=== PATIENT | male | born 1945 | race Caucasian/White ===

== ENCOUNTER 2020-09-01 14:53 | Emergency (ER) | payer MEDICARE, OTHER, SELFPAY ==
[2020-09-01 15:13] VITALS: BP 149/86; PULSE 70; RESP 18; TEMP 36.9; O2SAT 98; BMI 21.1
[2020-09-01 15:48] LABS: Add Manual Diff / Slide Review NO; Basophils Absolute Auto 100 /uL (0-100); Eosinophils Absolute Auto 200 /uL (0-450); Eosinophils Percent Auto 3.1 % (2-4); Hematocrit 44.9 % (41-53); Hemoglobin 14.6 g/dL (13.5-17.5); Lymphocytes Absolute Auto 2000 /uL (1100-4500); Lymphocytes Percent Auto 30.7 % (25-40); Mean Corpuscular HGB Conc 32.4 % (30-36); Mean Corpuscular Hemoglobin 32.1 PG (26-34); Mean Corpuscular Volume 98.9 fL (80-100); Monocytes Absolute Auto 500 /uL (0-900); Monocytes Percent Auto 7.5 % (3-14); Neutrophils Absolute Auto 3700 /uL (1500-7000); Neutrophils Percent Auto 57.7 % (50-75); Platelet Count 183 X10^3/uL (150-400); Red Blood Cell Count 4.54 X10^6/uL (4.5-5.9); Red Cell Distribution Width 12.9 % (11.6-14.8); White Blood Cell Count 6.4 X10^3/uL (4.5-11.0)
--- NOTE | 2020-09-01 15:52 | PC.NURSE ---
Pt reports having difficult time with isolation from COVID. Recent breakup with long distance relationship. Saw primary MD last month for insomnia and trouble falling asleep, now out of prescribed medication. Feels depressed about not being able to sleep and lack of socialization. Does not have any thoughts or intentions of suicide.
[2020-09-01 15:58] LABS: Acetaminophen < 10 ug/mL (10-30); Alanine Aminotransferase 28 IU/L (<50); Albumin 4.3 g/dL (3.5-5.0); Albumin Globulin Ratio 1.5 (1.0-2.8); Alkaline Phosphatase 87 U/L (38-126); Aspartate Aminotransferase 29 IU/L (17-59); BUN Creatinine Ratio 10.8 (6-22); Bilirubin Total 0.8 mg/dL (0.2-1.3); Blood Urea Nitrogen 9 mg/dL (9-20); Calcium 9.7 mg/dL (8.4-10.2); Carbon Dioxide 29 mmol/L (22-32); Chloride 105 mmol/L (98-107); Estimated Glomerular Filt Rate > 60.0 mL/min (>60); Ethanol (ETOH) < 10 mg/dL; Globulin 2.8 g/dL (1.7-4.1); Glucose 107 mg/dL (80-110); HEMOLYSIS 25 (0-50); Salicylate < 1.0 mg/dL (<20); Sodium 140 mmol/L (137-145); Total Protein 7.1 g/dL (6.3-8.2)
--- NOTE | 2020-09-01 16:19 | ED_ITS ---
HPI - Psych General Chief Complaint: Psychiatric Symptoms Stated Complaint: major stress, says puts him in shock Time Seen by Provider: 09/01/20 16:07 Source: patient Mode of arrival: Ambulatory Limitations: no limitations History of Present Illness HPI Narrative: Patient is a 74-year-old male who presents with insomnia. He states that he has had and lot of stress happening over the past 7-8 months. Over the past couple months he has had increased difficulty sleeping. It sounds as though he has a good sleep routine he stops screens and television an hour before bed he reads and then does a crossword puzzle and even tries to read books and determine just to take his concentration and focus off getting to s leep. He has tried multiple medications including melatonin and Benadryl, his PCP put him on alprazolam 0.25 mg which he said worked like a Charm initially but then stopped working and he started spreading them out a. However he has not slept in the last several nights and this causes him great stress. He denies any suicidal ideations or homicidal ideations. He says he really just feels like he needs to sleep in if he does not body might go into shock. Relieving factors: none Exacerbating factors: none Related Data Home Medications Medication Instructions Recorded Confirmed CYANOCOBALAMIN (VITAMIN B-12) 1,000 mcg PO QDAY #0 06/11/12 magnesium 200 mg PO Q DAY #0 08/25/16 omeprazole 20 mg PO QDAY #0 12/29/16 Previous Rx's Medication Instructions Recorded cephalexin [Keflex] 0 PO BID #40 cap 12/29/16 alprazolam 0.5 mg PO BEDTIME PRN #2 tab 09/01/20 Allergies Allergy/AdvReac Type Severity Reaction Status Date / Time macadamia nut oil Allergy Severe Anaphylaxis Unverified 08/26/17 12:23 [MACADAMIA NUT OIL] egg [EGG] Allergy Unknown Unverified 08/26/17 12:23 sesame seed [SESAME SEED] Allergy Unknown Unverified 08/26/17 12:23 soy [SOY] Allergy Unknown Unverified 08/26/17 12:23 sunflower seed Allergy Unknown Unverified 08/26/17 12:23 [SUNFLOWER SEED] dairy Allergy Unknown Uncoded 08/26/17 12:23 FLU VACCINE AdvReac Unknown NAUSEA Uncoded 08/26/17 12:23 Review of Systems Constitutional Constitutional: Denies chills, Reports daytime sleepiness, Reports difficulty sleeping, Denies lethargy, Denies night sweats and Denies poor appetite Cardiovascular Cardiovascular: Denies chest pain, Denies irregular heart rhythm, Denies lightheadedness, Denies palpitations, Denies dyspnea, Denies dyspnea on exertion and Denies orthopnea Respiratory Respiratory: Denies cough, Denies dyspnea, Denies dyspnea on exertion and Denies wheezing Gastrointestinal Gastrointestinal: Denies abdominal pain, Denies change in bowel habits, Denies diarrhea, Denies nausea and Denies vomiting Genitourinary Genitourinary: Denies urinary hesitancy and Denies urinary incontinence Genitourinary: Denies urinary incontinence and Denies urinary hesitancy Musculoskeletal Musculoskeletal: Denies back pain and Denies myalgias Integumentary/Breasts Skin/Breast: Denies pruritus, Denies erythema, Denies rash and Denies wounds Endocrine Endocrine: Denies palpitations Allergic/Immunologic Allergic/Immunologic: Denies wheezing Patient History Surgical History History of cataract removal with insertion of prosthetic lens Status post hernia repair Family History Father Essential hypertension High cholesterol Social History Smoking Status: Never smoker Smoking Status: Never smoker Substance Use Type: does not use Exam Initial Vital Signs Initial Vital Signs: Vital Signs Temperature 98.5 F 09/01/20 15:13 Pulse Rate 70 09/01/20 15:13 Respiratory Rate 18 09/01/20 15:13 Blood Pressure 149/86 H 09/01/20 15:13 Pulse Oximetry 98 09/01/20 15:13 GENERAL: Well-dressed well-appearing 74-year-old male and in no acute distress. HEENT: Head atraumatic,EOMI, pupils reactive, face symmetric, moist mucous membranes CARDIOVASCULAR: Regular rate and rhythm without murmurs, rubs or gallops. RESPIRATORY: Breath sounds equal bilaterally, no wheezes rales or rhonchi. EXTREMITIES: Normal range of motion, no clubbing or edema. Neurovascularly intact NEUROLOGICAL: Alert and oriented x4.Normal gait and speech. Cranial nerves II through XII grossly intact. SKIN: Warm, dry, no laceration, no petechiae, no rashes or lesions. Course Orders Ordered: ED Orders 09/01/20 15:30 Acetaminophen Stat Complete Blood Count AUTO DIFF Stat Comprehensive Metabolic Panel Stat Ethanol (ETOH) Stat Free T4, Direct Thyroxine Stat Salicylate Stat Thyroid Stimulating Hormone Stat Vital Signs Vital signs: Vital Signs - 8 hr 09/01/20 15:13 Temperature 98.5 F Pulse Rate 70 Respiratory Rate 18 Blood Pressure 149/86 H Pulse Oximetry 98 MDM - Psych Lab Data Attestation: I reviewed the patient's lab results. Result diagrams: 09/01/20 15:30 09/01/20 15:30 Labs: Lab Results 09/01/20 09/01/20 09/01/20 Range/Units 15:30 15:30 15:30 WBC 6.4 (4.5-11.0) X10^3/uL RBC 4.54 (4.5-5.9) X10^6/uL Hgb 14.6 (13.5-17.5) g/dL Hct 44.9 (41-53) % MCV 98.9 (80-100) fL MCH 32.1 (26-34) PG MCHC 32.4 (30-36) % RDW 12.9 (11.6-14.8) % Plt Count 183 (150-400) X10^3/uL Neut % (Auto) 57.7 (50-75) % Lymph % (Auto) 30.7 (25-40) % [place] % (Auto) 7.5 (3-14) % Eos % (Auto) 3.1 (2-4) % Baso % (Auto) 1.0 (0-2) % Neut # (Auto) 3700 (0239-4014) /uL Lymph # (Auto) 2000 (6905-6629) /uL [place] # (Auto) 500 (0-900) /uL Eos # (Auto) 200 (0-450) /uL Baso # (Auto) 100 (0-100) /uL Sodium 140 (137-145) mmol/L Potassium 5.0 (3.4-5.1) mmol/L Chloride 105 (98-107) mmol/L Carbon Dioxide 29 (22-32) mmol/L BUN 9 (9-20) mg/dL Creatinine 0.83 (0.66-1.25) mg/dL Estimated GFR > 60.0 (>60) mL/min BUN/Creatinine Ratio 10.8 (6-22) Glucose 107 (80-110) mg/dL Calcium 9.7 (8.4-10.2) mg/dL Total Bilirubin 0.8 (0.2-1.3) mg/dL AST 29 (17-59) IU/L ALT 28 (<50) IU/L Alkaline Phosphatase 87 (38-126) U/L Total Protein 7.1 (6.3-8.2) g/dL Albumin 4.3 (3.5-5.0) g/dL Globulin 2.8 (1.7-4.1) g/dL Albumin/Globulin Ratio 1.5 (1.0-2.8) TSH 1.44 (0.47-4.68) uIU/mL Free T4 0.89 (0.78-2.19) ng/dL Salicylates < 1.0 (<20) mg/dL Acetaminophen < 10 L (10-30) ug/mL Ethyl Alcohol < 10 ( - 10) mg/dL MDM Narrative Medical decision making narrative: Patient is having and the. He really does not want take any more alprazolam but he really feels like he needs at least 1 good night sleep. At this time I will have agreed to give him 2 tablets of 0.5 mg alprazolam he has appointment with his PCP next week Discharge Plan Departure Patient Disposition: Home Clinical Impression: Insomnia Qualifiers: Insomnia type: unspecified Qualified Code(s): G47.00 - Insomnia, unspecified Instructions: DI for Insomnia Activity Restrictions/Additional Instructions: *You have been diagnosed with insomnia *What to do: At this time I will give you 2 tablets when to take tonight season have sleep in want to stay for later is. Please talk to your primary care provider about other options. I also do think this is her body really learning how to sleep in a will take time. *Continue to take medications as directed Alprazolam 0.5 mg at night *Follow up with your primary care provider in 2-3 days *Return to ER if you should have any new, worsening or concerning symptoms CONTROLLED SUBSTANCE DISCHARGE (Narcotoic/benzodiazepine/Flexeril/Phenergan) 1. You have been prescribed narcotic medications, it does have acetaminophen/Tylenol/paracetamol in it, DO NOT TAKE MORE THAN 4,00mg in 24 hours of Tylenol. TRAMADOL DOES NOT CONTAIN TYLENOL 2. Please understand that we cannot provide further refills of narcotics, benzodiazepines or controlled substances through the ED and her pain management will need to be through your provider. 3. While on these medications you cannot drive or operate heavy machinery. 4. You cannot sign legal documents or perform any duties such as this. 5. As long as you're taking opiate pain medications he should also be taking a stool softener such as Colace, Dulcolax, MiraLAX or prune juice, to help avoid constipation. Prescriptions: New alprazolam 0.5 mg tablet 0.5 mg PO BEDTIME PRN (Reason: sleep) Qty: 2 RF: 0 No Action CYANOCOBALAMIN (VITAMIN B-12) 1,000 mcg PO QDAY Qty: 0 RF: 0 magnesium 200 MG tablet 200 mg PO Q DAY Qty: 0 RF: 0 omeprazole 20 MG capsule,delayed release(DR/EC) 20 mg PO QDAY Qty: 0 RF: 0 cephalexin [Keflex] 500 MG capsule 0 PO BID Qty: 40 RF: 0 Referrals: Cecilio Melgar MD [Primary Care Provider] -
[2020-09-01 17:27] LABS: Free T4, Direct Thyroxine 0.89 ng/dL (0.78-2.19)
[2020-09-01 17:41] LABS: Thyroid Stimulating Hormone 1.44 uIU/mL (0.47-4.68)
== END 2020-09-01 16:32 | disposition home or self-care (01) ==
PROVIDERS: Emergency Provider Emergency Medicine; PCP Family Medicine
DX: G47.00 Insomnia, unspecified (principal)
CPT/HCPCS: 36415; 80053; 80320; 80329; 84439; 84443; 85025; 99283; G0480